=== PATIENT | female | born 1980 | race Caucasian/White ===

== ENCOUNTER 2020-04-18 09:45 | Day surgery (SDC) | payer BC ==
[2020-04-16 10:54] VITALS: BMI 23.9
[2020-04-18] MEDS ORDERED: Heparin 5,000 UNITS/ML VIAL ONE (10:08)
[2020-04-18] MEDS ORDERED: Fentanyl 100 MCG/2 ML VIAL ONE ×5 (10:48→18:15)
[2020-04-18] MEDS ORDERED: Gentamicin 80 MG/2 ML VIAL ONE (11:45)
[2020-04-18] MEDS ORDERED: Bupivacaine 0.25% HCL 30 ML VIAL ONE ×2 (11:45→11:49)
[2020-04-18] MEDS ORDERED: EPINEPHrine 1 MG/ML AMP ONE (11:45)
[2020-04-18] MEDS ORDERED: Lidocaine 1% (PF) 30 ML VIAL ONE (11:45)
[2020-04-18] MEDS ORDERED: Dexamethasone 20 MG/5 ML VIAL ONE (11:45)
[2020-04-18] MEDS ORDERED: Sodium Chloride 0.9% 0 ML ONE (11:46)
[2020-04-18] MEDS ORDERED: HYDROmorphone 0.5 MG/0.5 ML SYRINGE ONE (15:31)
[2020-04-18] MEDS ORDERED: Dexmedetomidine 200 MCG/2 ML VIAL ONE (15:31)
[2020-04-18] MEDS ORDERED: Ondansetron PF 4 MG/2 ML Vial ONE (19:27)
--- NOTE | 2020-04-20 10:50 | OP ---
DATE OF PROCEDURE: 04/18/2020 the attention was first turned to the left breast. modified Bowie pattern incisions were made. The skin over the inferior pole of the breast was de-epithelialized. Skin flaps were then raised superiorly, medially and laterally, being kept fairly thin. The patient wanted to be as small as she could, so a maximal resection of the larger left breast pedicle was performed preserving sensibility and viability in a central mound technique. Once the pedicle was made as small as it could be while protecting the viability, the modified Bowie pattern was closed with 3-0 PDS suture and 3-0 Monocryl suture. The pedicle was place with 2-0 PDS sutures. The nipple was brought out through a 42 mm nipple sizer. Similar procedure was done on each side. All surgical mueller were copiously irrigated and inspected for meticulous hemostasis prior to closure. Job ID: [id number]
== END 2020-04-18 20:45 | disposition home or self-care (01) ==
LOC: SDC 09:45
PROVIDERS: ATTEND Plastic Surgery
PROC: 0HBU0ZZ Excision of Left Breast, Open Approach (ICD-10-PCS; principal; 2020-04-18)
DX: N62 Hypertrophy of breast (principal); E10.9 Type 1 diabetes mellitus without complications; E89.0 Postprocedural hypothyroidism; F41.9 Anxiety disorder, unspecified; G43.909 Migraine, unspecified, not intractable, without status migrainosus; Z15.09 Genetic susceptibility to other malignant neoplasm
CPT/HCPCS: 36416; J0171; J0690; J1100; J1170; J1580; J1644; J2001; J2405; J3010; J3370; J3490; S0020

== ENCOUNTER 2020-12-25 14:07 | Outpatient (CLI) | payer BC | END 2020-12-25 14:08 | disposition home or self-care (01) | LOC: BICMAMMO 14:07 | PROVIDERS: ATTEND Obstetrics & Gynecology | DX: Z12.31 Encounter for screening mammogram for malignant neoplasm of breast (principal); Z98.890 Other specified postprocedural states | CPT/HCPCS: 77063; 77067 ==

== ENCOUNTER 2021-12-28 15:17 | Outpatient (CLI) | payer BC | END 2021-12-28 15:18 | disposition home or self-care (01) | LOC: BICMAMMO 15:17 | PROVIDERS: ATTEND Obstetrics & Gynecology | DX: Z12.31 Encounter for screening mammogram for malignant neoplasm of breast (principal); Z98.890 Other specified postprocedural states | CPT/HCPCS: 77063; 77067 ==

== ENCOUNTER 2023-01-13 15:53 | Outpatient (CLI) | payer BC | END 2023-01-13 15:54 | disposition home or self-care (01) | LOC: BICMAMMO 15:53 | PROVIDERS: ATTEND Obstetrics & Gynecology | DX: Z12.31 Encounter for screening mammogram for malignant neoplasm of breast (principal); Z80.3 Family history of malignant neoplasm of breast; Z98.82 Breast implant status | CPT/HCPCS: 77063; 77067 ==

== ENCOUNTER 2024-01-18 15:40 | Outpatient (CLI) | payer BC | END 2024-01-18 15:41 | disposition home or self-care (01) | LOC: BICMAMMO 15:40 | PROVIDERS: ATTEND Obstetrics & Gynecology | DX: Z12.31 Encounter for screening mammogram for malignant neoplasm of breast (principal); Z80.3 Family history of malignant neoplasm of breast | CPT/HCPCS: 77063; 77067 ==

== ENCOUNTER 2025-01-18 14:46 | Outpatient (CLI) | payer BC | END 2025-01-18 14:47 | disposition home or self-care (01) | LOC: BICMAMMO 14:46 | PROVIDERS: ATTEND Obstetrics & Gynecology | DX: Z12.31 Encounter for screening mammogram for malignant neoplasm of breast (principal); Z80.3 Family history of malignant neoplasm of breast; Z98.890 Other specified postprocedural states | CPT/HCPCS: 77063; 77067 ==